=== PATIENT | male | born 1960 | race Caucasian/White ===

== ENCOUNTER 2017-04-01 08:30 | Day surgery (SDC) | payer BC, OTHER ==
[~2017-04-01 08:30] MED LIST: RINGER'S SOLUTION,LACTATED 1,000 ML IV PRN
[2017-04-01] MEDS: RINGER'S SOLUTION,LACTATED 1,000 ML IV ONE (08:45)
[2017-04-01] MEDS ORDERED: RINGER'S SOLUTION,LACTATED 1,000 ML IV PRN (10:00)
[2017-04-01] MEDS: PANTOPRAZOLE SODIUM 40 MG in NORMAL SALINE 100 ML IV ONE (10:55)
--- NOTE | 2017-04-01 16:54 | OR ---
Operative Report - Dictated Report Narrative: Operative Report Date of operation: 04/01/2017 Preoperative diagnosis: Dysphagia. GERD symptoms. Family history of colon cancer. No prior dedicated colon studies Postoperative diagnosis: Esophagitis, hiatal hernia, gastropathy, duodenitis ( pathology and CLOtest pending). 3 mm polyp at 45 cm, 4 mm polyp at 25 cm ( pathology pending) Operation: EGD with biopsies. Colonoscopy with hot biopsy forceps polypectomy 2 Surgeon: Dr Robert Anesthesia: ANA AMBRIZ CRNA Indications for procedure: The patient is a 56-year-old male referred by Dr. Leahy. The patient has occasional dysphagia for solid foods and GERD symptoms. He has had no previous dedicated colon studies. His sister had colon cancer at age 45 and his grandfather had colon cancer at an advanced age. Findings: Esophagitis, hiatal hernia, gastropathy, duodenitis (pathology and CLOtest pending). Adenomatous appearing polyps at 25 and 45 cm (pathology pending) Narrative of procedure: The patient was identified preoperatively, and prior to the administration of anesthetic a multidisciplinary timeout was observed EGD: With the patient in the recumbent position, a bite-block was placed, intravenous sedation was administered, and the patient's eyes covered with a towel. The flexible fiberoptic gastroscope was advanced into the posterior pharynx which appeared normal. The supraglottic larynx appeared normal. The cords appeared normal, moved well, and opposed in the midline. The scope was advanced under direct vision into the proximal esophagus which appeared normal. The esophagus appeared freely distensible with normal mucosa. The esophageal mucosa appeared normal down to the gastroesophageal junction which was mildly inflamed with some edema. The GE junction appeared normally distensible however. The scope was advanced through a small hiatal hernia into the stomach which was insufflated with air. There was mireles gastric erythema but no nery ulcerations or neoplastic lesions were appreciated including a retroflexed view of the gastric fundus.. The pylorus appeared patent. The scope was advanced into the duodenal bulb which appeared mildly inflamed but no nery ulceration was present. The scope was advanced further to the horizontal portion of the duodenum which appeared normal, specifically the villous architecture appeared well preserved and clear bile was present. The scope was slowly withdrawn through the duodenal bulb with confirmation that no active ulcer was present. A biopsy of the duodenal bulb was obtained for pathology. The biopsy site was seen to be hemostatic. The scope was withdrawn into the stomach and technical service representative biopsies of gastric mucosa obtained for CLOtest and pathology. The biopsy sites were seen to be hemostatic. The scope was withdrawn to the GE junction which was biopsied. The biopsy site appeared hemostatic. The insufflated air was removed, the scope withdrawn from the patient, and this portion of the procedure terminated. COLONOSCOPY: The patient was then placed in the left lateral position, and the perineum was inspected. There was no evidence of pilonidal disease or skin breakdown. The external appearance of the anus was normal. Sphincter tone was good. The flexible fiberoptic colonoscope was inserted into the rectum which was insufflated with air. The rectal mucosa and submucosal vascular pattern appeared normal, the prep was seen to be complete. The scope was advanced through the sigmoid colon, where a 4 mm polyp was encountered at 25 cm. This was biopsied and then thoroughly destroyed with electrocautery. This site was seen to be complete and hemostatic. The scope was advanced to 45 cm where a 3 mm polyp was encountered. This was biopsied and thoroughly destroyed with electrocautery. The site was seen to be complete and hemostatic. The scope was advanced up the descending colon, and around the splenic flexure where the triangular haustral architecture of the transverse colon was seen. The scope was advanced across the transverse colon, around the hepatic flexure to the cecum, where the confluence of tenia and the ileocecal valve were identified. The mucosa at this level appeared normal. The scope was then slowly withdrawn in a circular fashion so that all aspects of colonic mucosa were inspected. The colon was relatively normal in course and caliber. The haustral architecture appeared well preserved throughout with no evidence of external compression. The mucosa and submucosal vascular pattern appeared normal, specifically there was no gross evidence to suggest colitis or inflammatory bowel disease and no AV malformations were seen. No nery diverticular openings were demonstrated. No additional polyps were encountered. The scope was gradually withdrawn to the level of the rectum. As much insufflated air as possible was removed. The scope was withdrawn from the patient and the procedure terminated. The patient tolerated the anesthetic and procedure well without complication and was transferred back to the ambulatory surgery area awake and in stable condition. The patient remained stable throughout a period of postoperative observation. He denied abdominal discomfort, was able to tolerate by mouth intake, and was up without assistance. I shared the operative findings with the patient and he was given copies of the photographs which appear in the medical record. He was given a single dose of Protonix 40 mg IV prior to discharge. He was discharged home with instructions not to engage in hazardous activity today, but may resume normal activity tomorrow, and advance diet as tolerated. He is to continue those medications as listed in the history and physical exam. I made arrangements to contact him with the biopsy reports and will make additional recommendations for treatment and follow-up based upon those results. Reviewed and electronically signed
[2017-04-01 18:15] VITALS: BP 117/72
== END 2017-04-01 08:31 | disposition home or self-care (01) ==
LOC: AMB 08:30
PROVIDERS: ATTEND Surgery
PROC: 0DB68ZX Excision of Stomach, Via Natural or Artificial Opening Endoscopic, Diagnostic (ICD-10-PCS; 2017-04-01)
PROC: 0DBE8ZX Excision of Large Intestine, Via Natural or Artificial Opening Endoscopic, Diagnostic (ICD-10-PCS; principal; 2017-04-01 09:00)
PROC: 0DB98ZX Excision of Duodenum, Via Natural or Artificial Opening Endoscopic, Diagnostic (ICD-10-PCS; 2017-04-01 09:00)
DX: Z12.11 Encounter for screening for malignant neoplasm of colon (principal); K21.0 Gastro-esophageal reflux disease with esophagitis; K29.80 Duodenitis without bleeding; K44.9 Diaphragmatic hernia without obstruction or gangrene; K63.5 Polyp of colon; K29.60 Other gastritis without bleeding; J45.20 Mild intermittent asthma, uncomplicated; Z68.28 Body mass index [BMI] 28.0-28.9, adult; Z80.0 Family history of malignant neoplasm of digestive organs